=== PATIENT | male | born 1985 | race Caucasian/White ===

== ENCOUNTER 2017-05-08 09:48 | Day surgery (SDC) | payer OTHER ==
[~2017-05-08] VITALS: Ht 170.2 cm; Wt 88.5 kg
[~2017-05-08 09:48] MED LIST: BUPIVACAINE-EPI 0.25%-1:200000 50 ML VIAL. ONE; HYDROmorphone 2 MG/ML VIAL IV PRN; IV RINGERS,LACTATED 1000ML 1,000 ML IV SCH; LIDOCAINE 1% PF 2 ML VIAL. ID PRN; MORPHINE SULFATE 2 MG/ML DISP.SYRIN. IV PRN; ONDANSETRON PF 4 MG/2 ML VIAL. IV PRN; PROCHLORPERAZINE 10 MG/2 ML VIAL. IV PRN; fentaNYL PF VIAL 100 MCG/2 ML VIAL IV PRN
[2017-05-08] MEDS ORDERED: LISI-338 PO (09:53)
[2017-05-08] MEDS ORDERED: SIMV20TA3 PO (09:53)
[2017-05-08] MEDS ORDERED: IBUP-1007 PO (09:54)
[2017-05-08] MEDS ORDERED: ROCURONIUM 50 MG/5 ML VIAL. ONE (11:28)
[2017-05-08] MEDS ORDERED: MIDAZOLAM HCL/PF 2 MG/2 ML VIAL. ONE (11:28)
[2017-05-08] MEDS ORDERED: fentaNYL PF VIAL 100 MCG/2 ML VIAL ONE (11:28)
[2017-05-08] MEDS ORDERED: DEXAMETHASONE SOD PHOS 20 MG/5 ML VIAL. ONE (11:29)
[2017-05-08] MEDS ORDERED: LIDOCAINE 2% PF Vial for OR 5 ML VIAL. ONE (11:29)
[2017-05-08] MEDS ORDERED: PROPOFOL 20 ML IV ONE (11:29)
[2017-05-08] MEDS ORDERED: KETOROLAC 30 MG/ML INJ FOR OR. INJ ONE (11:29)
[2017-05-08] MEDS ORDERED: FAMOTIDINE 20 MG/2 ML VIAL ONE (11:29)
[2017-05-08] MEDS ORDERED: SEVOFLURANE 61 TO 120 MINUTES. IH ONE (11:29)
[2017-05-08] MEDS ORDERED: ONDANSETRON PF 4 MG/2 ML VIAL. ONE (11:29)
[2017-05-08] MEDS ORDERED: ESMOLOL 100 MG/10 ML VIAL. IV ONE (12:55)
[2017-05-08] MEDS ORDERED: GLYCOPYRROLATE 1 MG/5 ML VIAL. ONE (13:24)
[2017-05-08] MEDS ORDERED: NEOSTIGMINE 10 MG/10 ML VIAL. ONE (13:24)
--- NOTE | 2017-05-08 13:36 | PDOC4 ---
Operative Note Operative Note Date: 05/08/2017 Preoperative diagnosis: Left inguinal hernia Postoperative diagnosis: Left inguinal hernia incarcerated Procedure: Robotic-assisted laparoscopic left inguinal hernia repair with mesh Surgeon: Benja Specimen: None Dictation: Patient is a 32-year-old male with complaints of a painful bulge in his left groin procedure of robotic-assisted laparoscopic left inguinal hernia repair was explained to the patient in detail all risks benefits were also discussed including bleeding infection injury to intra-abdominal contents possibly necessitating further or open operations. The patient seemed understanding gave both verbal and written consent to have the procedure performed. Patient was taken to the operating room placed in the supine position general anesthesia was initiated once patient was asleep and intubated he was placed in low lithotomy positioning and his abdomen and groin were prepped and draped usual sterile fashion using ChloraPrep. An area just above the umbilicus injected with quarter percent Marcaine with epinephrine incisions made lead blade scalpel varies needle was placed within the abdomen creating a pneumoperitoneum once this complete 8 mm da Aletha port was placed and the camera was placed within the abdomen. The abdomen was inspected it was noted that the left groin had a inguinal hernia with incarcerated omentum. 8-1/2 mm da Aletha port was placed in the right mid abdomen and one in the left mid abdomen under direct visualization at this point the da Aletha robot was brought in and docked all the ports. Surgeon went to the robotic console using a grasper and Endo Lexi scissors the incarcerated contents of the left inguinal hernia was reduced and incision was made in the peritoneal covering of the left groin this was opened up create flap posteriorly reducing the hernia sac. At this point a left 3-D Bard Max mesh was placed over the hernia defect along the peritoneal cavity. The peritoneal flap was then closed with a running V lock suture over the mesh. At this point the pneumoperitoneum was reduced all ports removed the da Aletha robot was undocked. The skin incisions were all closed with 4 septic or Monocryl Mastisol Steri-Strips and Band-Aids were applied as dressings. Patient was waken expanded in the operating room taken recovery in stable condition all sponge instrument needle counts listed as correct estimate blood loss 10 mL TRESSA LEON MD May 08, 2017 13:36
--- NOTE | 2017-05-08 13:37 | DISCH ---
DISCHARGE INSTRUCTIONS Condition on Discharge Condition on Discharge: Stable Activity After Discharge Activity Instructions for Disc: Avoid exertion Other activity instructions: No lifting >20lbs for 2 weeks Diet after Discharge Diet after Discharge: Regular Wound Incision Care Other wound/incision instructi: May shower in 24 hours Contacting the after DC Call your doctor for: If your condition worsens Follow-Up Follow up with: Dr Leon in 2 weeks TRESSA LEON MD May 08, 2017 13:37
[2017-05-08] MEDS ORDERED: oxyCODONE/APAP 5/325 1 TAB TABLET PO ONE (14:15)
[2017-05-08] MEDS: fentaNYL PF VIAL 100 MCG/2 ML VIAL IV PRN ×2 (14:20→14:30)
[2017-05-08 14:39] VITALS: BP 120/67
== END 2017-05-08 15:07 | disposition home or self-care (01) ==
LOC: EEVIPCON 09:48 → SURG 09:48
PROVIDERS: ATTEND Surgery
DX: K40.30 Unilateral inguinal hernia, with obstruction, without gangrene, not specified as recurrent (principal); E78.00 Pure hypercholesterolemia, unspecified; I10 Essential (primary) hypertension; F32.9 Major depressive disorder, single episode, unspecified
CPT/HCPCS: 49650; C1781; J0690; J1100; J1885; J2250; J2405; J2704; J2710; J3010; J3490; S0028; S2900; J2001